=== PATIENT | male | born 1945 | race Caucasian/White ===

== ENCOUNTER 2019-06-29 12:56 | Inpatient (IN) | payer MEDICARE, BC ==
[~2019-06-29] VITALS: Ht 170.2 cm; Wt 93.4 kg
--- NOTE | 2019-06-29 13:00 | NUR ---
"MIDSTERNAL CHEST PAIN, PRESSURE LIKE X 1 HOUR COREMAKING MACHINE OPERATOR" PT AAOX4,-SOB, NAD NOTED, VSS, PENDING MD WEBBER
[2019-06-29 13:30] LABS: BASOPHILS # (AUTO) 0.1 /CMM (0.0-0.2); BASOPHILS % (AUTO) 1.3 % (0.0-2.0); EOSINOPHILS % (AUTO) 4.2 % (0.0-6.0); HEMATOCRIT 34 % (39-51); HEMOGLOBIN 10.9 g/dL (13.5-17.5); LYMPHOCYTES # (AUTO) 0.9 /CMM (0.8-4.8); LYMPHOCYTES % (AUTO) 13.1 % (20.0-44.0); MEAN CORPUSCULAR HGB CONC 32 g/dl (31.0-36.0); MEAN CORPUSCULAR VOLUME 88 fL (80-96); MONOCYTES # (AUTO) 0.7 /CMM (0.1-1.30); NEUTROPHILS # (AUTO) 4.8 /CMM (1.8-8.9); NEUTROPHILS % (AUTO) 71.4 % (43.0-81.0); PLATELET COUNT (AUTO) 213 /CMM (150-450); RED BLOOD CELL COUNT(AUTO) 3.88 MIL/uL (4.5-6.0); WHITE BLOOD COUNT (AUTO) 6.7 K/uL (4.3-11.0)
[2019-06-29] MEDS ORDERED: RANI-655 PO (13:32)
[2019-06-29] MEDS ORDERED: ATOR40TA PO (13:32)
[2019-06-29] MEDS ORDERED: VALS80TA2 PO (13:32)
[2019-06-29] MEDS ORDERED: TRIA80OI TP (13:32)
[2019-06-29] MEDS ORDERED: LEVO50TA8 PO (13:32)
[2019-06-29] MEDS ORDERED: ASPI-992 PO (13:32)
[2019-06-29] MEDS ORDERED: ALLO300T2 PO (13:32)
[2019-06-29] MEDS ORDERED: VENL75CA56 PO (13:32)
[2019-06-29] MEDS ORDERED: TERA5CAP4 PO (13:32)
[2019-06-29] MEDS ORDERED: ESOM40CA PO (13:32)
[2019-06-29] MEDS ORDERED: CETI-102 PO (13:32)
[2019-06-29] MEDS ORDERED: OMEG10006 PO (13:32)
[2019-06-29] MEDS ORDERED: MV-M1TAB38 PO (13:32)
[2019-06-29] MEDS ORDERED: CARV12.52 PO (13:32)
[2019-06-29] MEDS ORDERED: DONE10TA11 PO (13:32)
[2019-06-29] MEDS ORDERED: ARMO250T2 PO (13:32)
[2019-06-29] MEDS ORDERED: TIOT4MIS3 IH (13:32)
[2019-06-29] MEDS ORDERED: FURO-145 PO (13:32)
[2019-06-29] MEDS ORDERED: FINA5TAB11 PO (13:32)
[2019-06-29 13:41] LABS: CALCIUM, SERUM 9.2 mg/dL (8.5-10.1); CARBON DIOXIDE 27 mmol/L (21-32); CHLORIDE 106 mmol/L (98-107); CREATININE 1.1 mg/dL (0.6-1.3); GLUCOSE 125 mg/dL (74-106); POTASSIUM 3.8 mmol/L (3.5-5.1); SODIUM SERUM 141 mmol/L (136-145); UREA NITROGEN, BLOOD 31 mg/dL (7-18)
[2019-06-29 13:48] LABS: ALANINE AMINOTRANSFERASE 47 U/L (12-78); ALBUMIN 3.4 g/dL (3.4-5.0); ALKALINE PHOSPHATASE 73 U/L (46-116); ASPARTATE AMINOTRANSFERASE 50 U/L (15-37); BILIRUBIN,DIRECT 0.3 mg/dL (0.0-0.2); BILIRUBIN,TOTAL 0.6 mg/dL (0.2-1.0); TOTAL PROTEIN, SERUM 7.3 g/dL (6.4-8.2)
[2019-06-29] MEDS ORDERED: IOHEXOL-300 100 ML VIAL IV ONE (13:50)
[2019-06-29] MEDS ORDERED: IV NS 0.9% 250 ML IV ONE (13:50)
[2019-06-29] MEDS ORDERED: CT SWABBABLE VALVE TRANS SET 1 EA INFUS.SET MC ONE (13:50)
--- NOTE | 2019-06-29 15:05 | NUR ---
CALLED NURSING SUP FOR BED
[2019-06-29] MEDS ORDERED: ALPRAZOLAM 0.5 MG TABLET ONE (15:20)
[2019-06-29] MEDS ORDERED: ALPRAZOLAM 0.25 MG TABLET PO ONE ×2 (15:30)
--- NOTE | 2019-06-29 15:45 | NUR ---
ROOM ASSIGNED: 324-2
[2019-06-29] MEDS ORDERED: ACETAMINOPHEN 325 MG TABLET ONE (15:50)
--- NOTE | 2019-06-29 15:52 | NUR ---
TYLENOL 650MG GIVEN PER ERMD VERBAL ORDER.
--- NOTE | 2019-06-29 15:52 | NUR ---
Yanelis owens in ED - 06/29/19 at 1554 by ADELA TYLENOL 650MG PO GIVEN PER JEANETTE VERBAL ORDER.
--- NOTE | 2019-06-29 16:00 | NUR ---
RN ADMITTING NOTES ADMITTED 73 YEARS OLD, M, A/O X 4. ABLE TO MAKE NEEDS KNOWN. PATIENT ORIENTED TO UNIT, ROOM AND STAFF. ON RA, TOLERATING WELL. V/S TAKEN AND RECORDED. REFUSED PHYSICAL ASSESSMENT. PATIENT HAS IV ACCESS ON RAC #18, SL. PATENT AND INTACT. ON TELE MONITOR. SAFETY MEASURES INITIATED, BED PLACED IN LOW LOCKED POSITION WITH SIDE RAILS UP X2. CALL LIGHT PLACED WITHIN REACH. WILL CONTINUE TO MONITOR.
--- NOTE | 2019-06-29 16:12 | NUR ---
PT TRANSPORTED TO 3RD FLOOR; REPORT GIVEN TO JCARLOS LIMON FOR MARK
[2019-06-29 16:30] VITALS: BP 121/66
--- NOTE | 2019-06-29 18:29 | NUR ---
CEMENT SPRAYER HELPER CLOSING NOTES PATIENT IN BED RESTING COMFORTABLY IN MODERATE HIGH BACK REST. A/O X4. IV ACCESS ON RIGHT AC#18. PATENT AND INTACT. ON TELE MONITORING WITH CURRENT READING OF SR WITH HR OF 93. NO CARDIAC DISTRESS VOICED THROUGHOUT THE SHIFT. SAFETY MEASURES IN PLACE, BED IN LOW LOCKED POSITION WITH SIDE RAILS UP X2. CALL LIGHT WITHIN REACH. WILL ENDORSE TO PACKAGE PICK UP NURSE FOR MARK.
[2019-06-29] MEDS: TERAZOSIN HCL 5 MG CAPSULE PO SCH (19:30)
[2019-06-29] MEDS: CARVEDILOL 12.5 MG TABLET PO SCH (19:30)
--- NOTE | 2019-06-29 19:46 | NUR ---
LICENSED LOAN OFFICER OPENING NOTES RECEIVED PATIENT IN BED ASLEEP. EASILY AROUSABLE. ALERT AND ORIENTED X4, VERBALLY RESPONSIVE, ABLE TO MAKE NEEDS KNOWN. BREATHING EVEN AND UNLABORED. NO SOB NOTED. ON ROOM AIR. DENIES PAIN OR DISCOMFORT. DENIES CHEST PAIN. DENIES N/V. IV ON RIGHT AC INTACT AND PATENT. AFEBRILE. STILL REFUSES SKIN ASSESSMENT. ALL OTHER NEEDS ATTENDED TO. SAFETY MEASURES IN PLACE. CALL LIGHT WITHIN REACH. WILL CONTINUE TO MONITOR.
[2019-06-29 20:00] VITALS: BP 96/53
[2019-06-29] MEDS ORDERED: ALBUTEROL HALF STRENGTH 1.25 MG/3 ML VIAL.NEB NEB PRN (20:00)
[2019-06-29] MEDS ORDERED: ONDANSETRON HCL/PF 4 MG/2 ML VIAL IVP PRN (20:00)
[2019-06-29] MEDS ORDERED: MAG HYDROX/AL HYDROX/SIMETH 30 ML UDC PO PRN (20:00)
[2019-06-29] MEDS ORDERED: Z GUARD REMEDY 2 OZ OINT TP PRN (20:00)
[2019-06-29] MEDS ORDERED: HYDROCODONE/APAP 5/325MG 1 EACH TABLET PO PRN (20:00)
[2019-06-29] MEDS ORDERED: MAGNESIUM HYDROXIDE 30 ML UDC PO PRN (20:00)
[2019-06-29] MEDS ORDERED: ZOLPIDEM TARTRATE 5 MG TABLET PO PRN (20:00)
[2019-06-29 20:06] LABS: THYROID STIMULATING HORMONE 3.303 uIU/mL (0.358-3.74)
[2019-06-29] MEDS: FUROSEMIDE 20 MG TABLET PO SCH (21:03)
[2019-06-29] MEDS: ATORVASTATIN 40 MG TABLET PO SCH (21:03)
--- NOTE | 2019-06-29 21:04 | NUR ---
GEOTHERMAL OPERATIONS MANAGER NOTES MARK CRANE HERE IN UNIT. INFORMED OF PATIENT'S BP 96/53 HR 84 WELL THE BP MEDS SCHEDULED: COREG, HYTRIN, LASIX. ASKED IF OK TO HOLD ALL OF THEM DUE TO LOW BP. PER ROYCE, OK TO HOLD HYTRIN AND COREG, BUT GIVE LASIX. VERIFIED ORDER WITH READ BACK. ORDERS NOTED AND CARRIED OUT. WILL CONTINUE TO MONITOR.
--- NOTE | 2019-06-29 21:44 | NUR ---
DIRECTOR OF PHYSICIAN PRACTICES NOTES MOTOR COACH OPERATOR ROYCE MADE AWARE OF LACTIC ACID 2.7. PATIENT NOT ON FLUIDS OR ABX. BP 96/53, HR 84, TEMP 97.8. PER MOTOR COACH OPERATOR ROYCE, NO NEW ORDERS. WILL CONTINUE TO MONITOR.
[2019-06-29] MEDS ORDERED: ALPRAZOLAM 1 MG TABLET PO ONE (22:00)
[2019-06-29] MEDS ORDERED: IV NS 0.9% 1,000 ML IV PRN (23:30)
[2019-06-29] MEDS ORDERED: LEVOFLOXACIN 750 MG /D5W 150ML 150 ML IV ONE (23:47)
[2019-06-30] VITALS (41 sets, daily range): BP systolic 82–117; BP diastolic 43–75
--- NOTE | 2019-06-30 01:11 | NUR ---
MANUFACTURING CHIEF ENGINEER NOTES PATIENT NOTED TO HAVE SOB. RR 32, 95% ON 2LNC. NO WHEEZING. CALLED RT FOR PRN BREATHING TREATMENT. PATIENT STATED THAT HE FEELS AGITATED AND IS REQUESTING FOR XANAX.. PAGED MARK CRANE, AND INFORMED OF PATIENT'S SOB AND VITALS. ALSO INFORMED ROYCE THAT PATIENT WAS GIVEN XANAX 1MG PO AT AROUND 2100 BUT IT WAS ONLY A [address] LEMA. PER ROYCE, XANAX 1MG PO Q8H PRN. ORDER NOTED AND CARRIED OUT. WILL CONTINUE TO MONITOR. Addendum: 06/30/19 at 0250 by LATONIA BURTON RN PATIENT ALSO REQUESTED FOR TYLENOL FOR RIGHT HIP PAIN 01/02. DENIES ANY FALLS. TYLENOL GIVEN AND PATIENT STATED IT WAS EFFECTIVE. Addendum: 06/30/19 at 0321 by LATONIA BURTON RN ERROR: PATIENT ON 3LPM NC.
[2019-06-30] MEDS: ACETAMINOPHEN 325 MG TABLET PO PRN (01:24)
[2019-06-30] MEDS: ALPRAZOLAM 1 MG TABLET PO PRN (01:24)
--- NOTE | 2019-06-30 02:20 | NUR ---
RT NOTE Late Entry: RT called to place pt on bipap per DEMENTIA PROGRAM DIRECTOR Jose Armando Celesteq. Pt rec'd on Simple Mask @ 6LPM. Pt showed signs of respiratory distress. Pt placed on noted setting per DEMENTIA PROGRAM DIRECTOR Jose Armando Mares. Stat Abg to be taken. Alarms are set and audible. Vent plugged into red outlet. Ambu bag bedside. Will continue to monitor. Addendum: 06/30/19 at 0332 by SEAN ROCHA RT Amended: Links added.
[2019-06-30] MEDS ORDERED: FUROSEMIDE 40 MG/4 ML VIAL IV ONE (02:30)
[2019-06-30 02:31] LABS: ABG BASE EXCESS 0.7 mmol/L; ABG OXYGEN SATURATION 99.4 % (92.0-98.5); ABG PCO2 42.1 mmHg (35.0-45.0); ABG PH 7.401 (7.350-7.450); ABG PO2 381.9 mmHg (75.0-100.0); COHb 0.7 % (0.5-1.5); MetHb 0.5 % (0.0-1.5); O2Hb 98.2 % (94.0-97.0); SITE, ABG Right Radial; VENT MODE, BG bipap 15/5 100% RR 16
--- NOTE | 2019-06-30 02:50 | NUR ---
MOUTHPIECE MAKER NOTES 0107 - BREATHING TREATMENT GIVEN FOR SOB. RR 32 O2SAT 95% ON 3LPM NC. BP 111/67 HR 95. SR 90s on TELE MONITOR. 0124 - XANAX 1MG PO GIVEN. 0157 - PAGED RADIO ANNOUNCER ROYCE AGAIN FOR LABORED BREATHING. XANAX AND BREATHING TREATMENT INEFFECTIVE. RR 39. 90-92% O2SAT ON 3LPM NC, BP 121/59 HR 93 PLACED ON 6LPM SIMPLE MASK. O2SAT INCREASED TO 98-99%. PER ROYCE, INITIATE BIPAP AND WILL COME TO SEE PATIENT. 0210 - RADIO ANNOUNCER ROYCE HERE IN UNIT, SEEN AND EXAMINED PATIENT. PLACED ORDER FOR LASIX 40MG IV x1 NOW, STAT ABG, and Transfer to ICU. 0228 - RADIO ANNOUNCER ROYCE AWARE OF ABG RESULTS STILL WITH ORDER TO TRANSFER TO ICU. 0300 - PATIENT TRANSFERRED TO ICU. REPORT GIVEN TO BRAXTON MELGOZA.
--- NOTE | 2019-06-30 03:20 | NUR ---
BUSINESS INTELLIGENCE ANALYST - NOTES - PT TRANSFERRED FROM 3 FOR RESPIRATORY DISTRESS, PT COMPLAINING OF LABORED BREATHING AND PLACED ON RESCUE BIPAP. PT IS AWAKE ALERT AND ORIENTED X 3, PT PLACED ON BIPAP 15/5 RATE 16 40% FI02, PT WAS GIVEN 40 MG LASIX BEFORE COMING TO ICU, PT HAS A CONDOM CATHETER AND IS PUTTING OUT CLEAR YELLOW URINE. PT IS IN SR W BBB, BP WNL. PT HAS RIGHT AC 18G, NO IVF, WILL CONTINUE TO MONITOR
[2019-06-30] MEDS ORDERED: MORPHINE SULFATE INJ 2 MG/ML DISP.SYRIN IV PRN (03:30)
[2019-06-30 04:47] LABS: BASOPHILS % (AUTO) 0.2 % (0.0-2.0); EOSINOPHILS % (AUTO) 0.3 % (0.0-6.0); HEMATOCRIT 33 % (39-51); HEMOGLOBIN 10.9 g/dL (13.5-17.5); LYMPHOCYTES # (AUTO) 0.3 /CMM (0.8-4.8); LYMPHOCYTES % (AUTO) 3.3 % (20.0-44.0); MEAN CORPUSCULAR HGB CONC 33 g/dl (31.0-36.0); MEAN CORPUSCULAR VOLUME 87 fL (80-96); MONOCYTES # (AUTO) 0.6 /CMM (0.1-1.30); MONOCYTES % (AUTO) 6.2 % (2.0-12.0); PLATELET COUNT (AUTO) 171 /CMM (150-450); RED BLOOD CELL COUNT(AUTO) 3.81 MIL/uL (4.5-6.0); WHITE BLOOD COUNT (AUTO) 8.9 K/uL (4.3-11.0)
--- NOTE | 2019-06-30 04:50 | NUR ---
PT REFUSED BIPAP COMPLAINING THAT IT IS UNCOMFORTABLE, PT PLACED ON 2L NC, WILL CONTINUE TO MONITOR
[2019-06-30 05:01] LABS: CARBON DIOXIDE 28 mmol/L (21-32); CHLORIDE 104 mmol/L (98-107); CREATININE 1.1 mg/dL (0.6-1.3); GLUCOSE 121 mg/dL (74-106); MAGNESIUM 1.8 mg/dL (1.8-2.4); PHOSPHORUS 3.5 mg/dL (2.5-4.9); POTASSIUM 3.6 mmol/L (3.5-5.1); SODIUM SERUM 139 mmol/L (136-145); UREA NITROGEN, BLOOD 33 mg/dL (7-18)
--- NOTE | 2019-06-30 05:05 | NUR ---
PT DESATURATED TO 88%, NASAL CANNULA FLOW INCREASED TO 6 LPM
--- NOTE | 2019-06-30 07:30 | NUR ---
PATROL SUPERVISOR OPENING NOTES RECEIVED REPORT FRO PM NURSE. PATIENT IN BED ASLEEP. EASILY AROUSABLE. ALERT AND ORIENTED X4, VERBALLY RESPONSIVE, ABLE TO MAKE NEEDS KNOWN. BREATHING EVEN AND MILD LABORED. ON NASAL CANULA. DENIES PAIN OR DISCOMFORT. DENIES CHEST PAIN. IV ON RIGHT AC INTACT AND PATENT. AFEBRILE.SAFETY MEASURES IN PLACE. CALL LIGHT WITHIN REACH. SRX3.BED ALARM ON.WILL CONTINUE TO MONITOR.
[2019-06-30] MEDS: ASPIRIN 325 MG TABLET PO SCH (08:14)
[2019-06-30] MEDS: LEVOTHYROXINE SODIUM 50 MCG TABLET PO SCH (08:17)
[2019-06-30] MEDS: VALSARTAN 80 MG TABLET PO SCH (08:18)
[2019-06-30] MEDS: CARVEDILOL 12.5 MG TABLET PO SCH ×2 (08:18→16:44)
[2019-06-30] MEDS: ATORVASTATIN 40 MG TABLET PO SCH (08:18)
[2019-06-30] MEDS: FINASTERIDE (5 MG) 5 MG TABLET PO SCH (08:18)
[2019-06-30] MEDS: FUROSEMIDE 20 MG TABLET PO SCH ×2 (08:18→16:43)
[2019-06-30] MEDS: PANTOPRAZOLE 40 MG TABLET.DR PO SCH (08:31)
[2019-06-30] MEDS: DONEPEZIL 5 MG TABLET PO SCH (08:31)
[2019-06-30] MEDS: VENLAFAXINE XR 37.5 MG CAP.SR.24H PO SCH (08:31)
[2019-06-30] MEDS: ALLOPURINOL 100 MG TABLET PO SCH (08:31)
[2019-06-30] MEDS ORDERED: TIOTROPIUM BR INH SCH (09:00)
[2019-06-30] MEDS ORDERED: methylPREDNISolone SOD SUCC 125 MG/2ML VIAL IV ONE (09:00)
[2019-06-30] MEDS ORDERED: OLODATEROL HCL INH SCH (09:00)
[2019-06-30] MEDS: TERAZOSIN HCL 5 MG CAPSULE PO SCH ×2 (09:00→16:44)
[2019-06-30] MEDS: ALBUTEROL HALF STRENGTH 1.25 MG/3 ML VIAL.NEB NEB SCH ×5 (09:00→23:21)
[2019-06-30] MEDS: cetrizine 10 MG TABLET PO SCH (10:03)
[2019-06-30 10:07] LABS: *SPE A/G RATIO 1.1 (0.7-1.7); *SPE ALBUMIN 3.6 g/dL (2.9-4.4); *SPE ALPHA-1-GLOBULIN 0.2 g/dL (0.0-0.4); *SPE BETA GLOBULIN 0.9 g/dL (0.7-1.3); *SPE GLOBULIN, TOTAL 3.4 g/dL (2.2-3.9); *SPE M-SPIKE Not Observed g/dL (Not Observed); *SPEGAMMA GLOBULIN 1.3 g/dL (0.4-1.8)
[2019-06-30] MEDS: ENOXAPARIN SODIUM 40 MG/0.4 ML DISP.SYRIN SQ SCH (10:59)
--- NOTE | 2019-06-30 11:19 | NUR ---
GUEST SERVICES NOTE PALCED PATIENT ON BIPAP,LABORED BREATHING
[2019-06-30] MEDS: methylPREDNISolone SOD SUCC 40 MG/ML VIAL IV SCH ×2 (13:44→21:10)
--- NOTE | 2019-06-30 14:00 | NUR ---
HEAT SET OPERATOR NOTE SYSTEMS AUDITOR MADE AWARE ABOUT MED RECONCILIATION.HE DONT WANT TO CONTINUE MEDS THAT DID NOT CONTINUED FROM MED RECONCILE.PHARMACY MADE AWARE.SPOKE TO
--- NOTE | 2019-06-30 17:07 | NUR ---
RT END OF THE SHIFT REPORT, PT. REC @0700 AM 73 Y OLD MALE REMAIN ON 2 L/MIN N/C AWAKE AND RESPONSIVE. @1105 AM PT. START GETTING CONFUSED, AND SOB RN AND TEST ADMINISTRATOR AT THE BEDSIDE. PT. PLACED ON BIPAP WITH NOTED SETTINGS. EQUAL CHEST RISE NOTED B/S BILATERALLY RALES. BIPAP PLUGGED INTO RED OUT LET, AMBU BAG AT BEDSIDE. TX'S ALBUTEROL 1.25 MG STARTED INLINE PER MD ORDER. Q4H SEBASTIAN. WELL NO ADVERSE REACTION NOTED. @1300 PT. OFF BIPAP PLACED ON 2L/MIN N/C WILL CONTINUE TO MONITOR. @1558 HHN TX'S GIVEN WITH MASK AND NO ADVERSE REACTION NOTED. PT. STABLE AND REPORT WILL PASS TO PM SHIFT. Addendum: 06/30/19 at 1719 by PRIMO CARMONA RT Amended: Links added.
--- NOTE | 2019-06-30 19:36 | NUR ---
RECREATIONAL LEADER. INITIAL ASSESSMENT. RECEIVED THE PT REST ON THE BED. AWAKE, ALERT. FOLLOW COMMANDS, OXYGEN 5L VIA NASAL CANNULA. SAT 98%. NO ACUTE DISTRESS NOTED. EXECUTIVE ADMINISTRATIVE ASSISTANT SHOWING NSR. IV RT AC 18, SALINE LOCK. HOB ELEVATED. WILL CONTINUE TO MONITOR VITALS.
--- NOTE | 2019-06-30 19:41 | NUR ---
MOBILE MARKETING MANAGER CLOSING NOTES PATIENT IN BED SLEEPING. EASILY AROUSABLE. ALERT AND ORIENTED X4, VERBALLY RESPONSIVE, ABLE TO MAKE NEEDS KNOWN. BREATHING EVEN.NO SOB NOTED. ON NASAL CANULA 5L. DENIES PAIN OR DISCOMFORT. DENIES CHEST PAIN. IV ON RIGHT AC INTACT AND PATENT. AFEBRILE.SAFETY MEASURES IN PLACE. CALL LIGHT WITHIN REACH. SRX3.BED ALARM ON.ENDORSED TO PM NURSE FOR MARK.
[2019-06-30] MEDS: LEVOFLOXACIN 750 MG /D5W 150ML 750 MG in PREMIX 1 EA IV SCH ×3 (22:53)
[2019-07-01] VITALS (51 sets, daily range): BP systolic 91–135; BP diastolic 47–87
[2019-07-01] MEDS: ALBUTEROL HALF STRENGTH 1.25 MG/3 ML VIAL.NEB NEB SCH ×6 (03:19→23:42)
--- NOTE | 2019-07-01 03:37 | NUR ---
MASK CHANGED TO UNDER THE NOSE MASK. PT COMPLAINING PRESSURE ON THE BRIDGE OF HIS NOSE. U.T.N MASK SIZE C IS MORE COMFORTABLE.
--- NOTE | 2019-07-01 03:48 | NUR ---
agricultural equipment design engineer. am care, oral care, bed bath given. linen changed, remaining same c pap setting tolerated well. sat 98%, no acute distress noted. surveillance monitor showing nsr. iv rt ac saline lock condom cath in laced, urine draining. will continue to monitor. a febrile.
[2019-07-01 04:23] LABS: HEMATOCRIT 32 % (39-51); HEMOGLOBIN 10.5 g/dL (13.5-17.5); LYMPHOCYTES # (AUTO) 0.5 /CMM (0.8-4.8); LYMPHOCYTES % (AUTO) 5.2 % (20.0-44.0); MEAN CORPUSCULAR HGB CONC 33 g/dl (31.0-36.0); MEAN CORPUSCULAR VOLUME 88 fL (80-96); MONOCYTES # (AUTO) 0.2 /CMM (0.1-1.30); MONOCYTES % (AUTO) 2.5 % (2.0-12.0); NEUTROPHILS # (AUTO) 8.7 /CMM (1.8-8.9); NEUTROPHILS % (AUTO) 92.3 % (43.0-81.0); PLATELET COUNT (AUTO) 160 /CMM (150-450); RED BLOOD CELL COUNT(AUTO) 3.63 MIL/uL (4.5-6.0); WHITE BLOOD COUNT (AUTO) 9.4 K/uL (4.3-11.0)
[2019-07-01 04:32] LABS: CALCIUM, SERUM 9.6 mg/dL (8.5-10.1); CREATININE 1.1 mg/dL (0.6-1.3); POTASSIUM 3.9 mmol/L (3.5-5.1)
[2019-07-01] MEDS: methylPREDNISolone SOD SUCC 40 MG/ML VIAL IV SCH ×2 (04:37→10:51)
--- NOTE | 2019-07-01 05:54 | NUR ---
PT TAKEN OFF BIPAP AND PLACED ON 3L NC. RN LIVAN NOTIFIED.
--- NOTE | 2019-07-01 06:26 | NUR ---
PRIVATE BRANCH EXCHANGE INSTALLER, C PAP OFF. OXYGEN 3L VIA NASAL CANNULA.
--- NOTE | 2019-07-01 07:35 | NUR ---
TANK WASHER OPENING NOTES RECEIVED REPORT FROM PM NURSE.PATIENT IN BED .ALERT AND ORIENTED X4, VERBALLY RESPONSIVE, ABLE TO MAKE NEEDS KNOWN. ON TELE MONITOR SR.BREATHING EVEN.NO SOB NOTED. ON NASAL CANULA 3L.SATURATING 98%. DENIES PAIN OR DISCOMFORT. DENIES CHEST PAIN. IV ON RIGHT AC INTACT AND PATENT. AFEBRILE.SAFETY MEASURES IN PLACE. CALL LIGHT WITHIN REACH. SRX3.BED ALARM ON.WILL CONTINUE TO MONITOR.
[2019-07-01] MEDS: PANTOPRAZOLE 40 MG TABLET.DR PO SCH (07:38)
[2019-07-01] MEDS: LEVOTHYROXINE SODIUM 50 MCG TABLET PO SCH (07:38)
[2019-07-01 08:29] LABS: LYMPHOCYTES % (MANUAL) 4 % (16-48); MONOCYTES % (MANUAL) 1 % (0-11.0); NEUTROPHILS % (MANUAL) 95 (42-76)
[2019-07-01] MEDS: TERAZOSIN HCL 5 MG CAPSULE PO SCH ×2 (08:56→17:12)
[2019-07-01] MEDS: DONEPEZIL 5 MG TABLET PO SCH (08:56)
[2019-07-01] MEDS: ASPIRIN 325 MG TABLET PO SCH (08:56)
[2019-07-01] MEDS: ALLOPURINOL 100 MG TABLET PO SCH (08:57)
[2019-07-01] MEDS: CARVEDILOL 12.5 MG TABLET PO SCH ×2 (08:57→17:00)
[2019-07-01] MEDS: VENLAFAXINE XR 37.5 MG CAP.SR.24H PO SCH (08:57)
[2019-07-01] MEDS: FUROSEMIDE 20 MG TABLET PO SCH ×2 (08:57→17:12)
[2019-07-01] MEDS: FINASTERIDE (5 MG) 5 MG TABLET PO SCH (08:57)
[2019-07-01] MEDS: cetrizine 10 MG TABLET PO SCH (08:57)
[2019-07-01] MEDS: VALSARTAN 80 MG TABLET PO SCH (08:57)
[2019-07-01] MEDS: ATORVASTATIN 40 MG TABLET PO SCH (08:57)
[2019-07-01 09:04] LABS: ABG BASE EXCESS 0.7 mmol/L; ABG OXYGEN SATURATION 92.4 % (92.0-98.5); ABG PCO2 40.9 mmHg (35.0-45.0); ABG PO2 65.7 mmHg (75.0-100.0); AaDO2 35.1 mmHg; COHb 0.2 % (0.5-1.5); MetHb 0.8 % (0.0-1.5); O2Hb 91.5 % (94.0-97.0); SITE, ABG Right Radial; VENT MODE, BG ROOM AIR
--- NOTE | 2019-07-01 10:40 | NUR ---
CERTIFIED RETINAL ANGIOGRAPHER NOTE SEEN BY MARK SHAW,UPDATED ABOUT PATIENT CONDITION.GOT NEW ORDERS.OK TO DOWNGRADE TO TELE UNIT.
[2019-07-01] MEDS: ENOXAPARIN SODIUM 40 MG/0.4 ML DISP.SYRIN SQ SCH (10:48)
[2019-07-01] MEDS ORDERED: METOPROLOL TARTRATE INJ 5 MG/5 ML AMPUL ONE ×3 (15:10→15:55)
[2019-07-01] MEDS ORDERED: NITROGLYCERIN 0.4 MG/TAB BOTTLE ONE (15:10)
--- NOTE | 2019-07-01 15:10 | NUR ---
O AND M SUPERVISOR NOTE PATIENT PICKED UP FOR CTA IN STABLE CONDITION.
[2019-07-01] MEDS: METOPROLOL TARTRATE INJ 5 MG/5 ML AMPUL IVP PRN ×10 (15:13→15:58)
[2019-07-01] MEDS ORDERED: NITROGLYCERIN 0.4 MG/TAB BOTTLE SL ONE (15:30)
--- NOTE | 2019-07-01 16:45 | NUR ---
MD ALLERGY IMMUNOLOGY NOTE PATIENT OUT FOR CTA [id number] TO 1630.BACK TO THE UNIT.MILD SOB NOTED WITH SATURATION OF 95%.VITAL SIGNS STABLE.RT MADE AWARE.BREATHING TREATMENT GIVEN.WILL CONTINUE TO MONITOR.
--- NOTE | 2019-07-01 18:25 | NUR ---
SENIOR STAFF PSYCHOLOGISTCONTROL SYSTEMS DEVELOPER NOTE PATIENT TRANSFERRED TO TELE [id number] WITH ACLS PROTOCOL.NO SOB NO DISTRESS NOTED.ON O2 3L VIA NASAL CANULA.FRIEND AT BEDSIDE.TOOK ALL BELONGINGS.REPORT GIVEN TO NURSE MARTINS.IV LINES ARE INTACT AND PATENT.VITAL SIGNS ARE STABLE.
--- NOTE | 2019-07-01 18:56 | NUR ---
received from icu per lorri with cc of chest pain. fixed in bed and made comfortable. with froend at bedside
--- NOTE | 2019-07-01 19:40 | NUR ---
EVE/ACCOUNT ASSISTANT RECEIVED REPORT FROM DAY SHIFT NURSE. SEE FLOWSHEET FOR ASSESSMENT. THERE ARE NO SKIN ISSUES THAT PT HAS WHICH REQUIRED TO ADDRESSED. PT IS ALERT X 4.PT IS ON A CARDICA DIET. 3 LITERS N/C WITH SATURATION THAT ARE REASONABLE, 90'S. PT SELF TURNS AND REPOSITIONED HIMSELF FOR COMFORT AND CARE. WILL CONTINUE TO MONITOR THIS PT.
--- NOTE | 2019-07-01 21:00 | NUR ---
EVE/CERTIFIED GENETIC COUNSELOR PT REQUESTED XANAX PO TO HELP HIM SLEEP. THIS WAS GIVEN TO HIM. WILL CONTINUE TO MONITOR THIS PT.
[2019-07-01] MEDS: ALPRAZOLAM 1 MG TABLET PO PRN (21:45)
[2019-07-01] MEDS: ACETAMINOPHEN 325 MG TABLET PO PRN (21:51)
--- NOTE | 2019-07-01 21:59 | NUR ---
RT NOTE: PLACED PT ON CPAP ON NOTED SETTINGS AT THIS TIME. NOSE MASK C WAS USED AT THIS TIME. PT SAYS HE IS COMFORTABLE. WILL CONT TO MONITOR PT. Addendum: 07/02/19 at 0411 by NAT PRECIADO RT Amended: Links added.
--- NOTE | 2019-07-01 22:00 | NUR ---
EVE/METAL AND PLASTIC HEATER PT COMPLAINED ABOUT HEADACHE, GAVE TYLENOL PO FOR THIS WILL MONITOR THIS PT.
--- NOTE | 2019-07-01 23:00 | NUR ---
EVE/INSOLE REINFORCER PT WAS PLACED ON CPAP OVER NIGHT. WILL MONITOR THIS PT AND HIS SATURATION. CALL LIGHT WITHIN REACH.
[2019-07-02] VITALS: BP 125/84
[2019-07-02] MEDS: LEVOFLOXACIN 750 MG /D5W 150ML 750 MG in PREMIX 1 EA IV SCH (00:06)
--- NOTE | 2019-07-02 02:00 | NUR ---
EVE/INTERIOR PLANT CARETAKER PT APPEARS TO BE COMFORTABLE, NOM ACUTE DISTRESS SEEN. CALL LIGHT WITHIN REACH AT THIS TIME. WILL CONTINUE TO MONITOR THIS PT.
[2019-07-02] MEDS: ALBUTEROL HALF STRENGTH 1.25 MG/3 ML VIAL.NEB NEB SCH ×3 (03:32→10:55)
--- NOTE | 2019-07-02 03:50 | NUR ---
EVE/VIDEO SYSTEM REPAIRER PT TOOK OFF CPAP, PLACED 3 LITERS N/C ON PT, WILL MONITOR THIS PT'S SATURATION. RT AT BEDSIDE AWARE OF THIS
[2019-07-02 04:00] VITALS: BP 106/62
--- NOTE | 2019-07-02 05:00 | NUR ---
EVE/DEBURRER STRIP AM LABS WERE DRAWN
--- NOTE | 2019-07-02 07:25 | NUR ---
SAFE DEPOSIT BOX RENTAL CLERK OPENING NOTES RECEIVED REPORT FROM PM NURSE.PATIENT IN BED .ALERT AND ORIENTED X4, VERBALLY RESPONSIVE, ABLE TO MAKE NEEDS KNOWN. ON TELE MONITOR SR HR 67.BREATHING EVEN.NO SOB NOTED. ON NASAL CANULA 3L. DENIES PAIN OR DISCOMFORT. DENIES CHEST PAIN. IV ON RIGHT AC AND L HAND INTACT AND PATENT. AFEBRILE.SAFETY MEASURES IN PLACE. CALL LIGHT WITHIN REACH. SRX3.BED ALARM ON.WILL CONTINUE TO MONITOR.
[2019-07-02 07:29] LABS: BASOPHILS % (AUTO) 0.1 % (0.0-2.0); EOSINOPHILS % (AUTO) 0.1 % (0.0-6.0); HEMATOCRIT 33 % (39-51); HEMOGLOBIN 10.7 g/dL (13.5-17.5); LYMPHOCYTES # (AUTO) 0.6 /CMM (0.8-4.8); MEAN CORPUSCULAR HGB CONC 32 g/dl (31.0-36.0); MEAN CORPUSCULAR VOLUME 87 fL (80-96); MONOCYTES % (AUTO) 8.6 % (2.0-12.0); NEUTROPHILS % (AUTO) 86.2 % (43.0-81.0); PLATELET COUNT (AUTO) 166 /CMM (150-450); RED BLOOD CELL COUNT(AUTO) 3.84 MIL/uL (4.5-6.0); WHITE BLOOD COUNT (AUTO) 11.6 K/uL (4.3-11.0)
[2019-07-02 07:37] LABS: CALCIUM, SERUM 9.2 mg/dL (8.5-10.1); POTASSIUM 4.1 mmol/L (3.5-5.1)
[2019-07-02] MEDS: LEVOTHYROXINE SODIUM 50 MCG TABLET PO SCH (07:48)
[2019-07-02] MEDS: PANTOPRAZOLE 40 MG TABLET.DR PO SCH (07:48)
[2019-07-02 08:00] VITALS: BP 112/72
[2019-07-02] MEDS: TERAZOSIN HCL 5 MG CAPSULE PO SCH (08:24)
[2019-07-02] MEDS: ASPIRIN 325 MG TABLET PO SCH (08:24)
[2019-07-02] MEDS: DONEPEZIL 5 MG TABLET PO SCH (08:24)
[2019-07-02] MEDS: cetrizine 10 MG TABLET PO SCH (08:24)
[2019-07-02] MEDS: ALLOPURINOL 100 MG TABLET PO SCH (08:24)
[2019-07-02] MEDS: FINASTERIDE (5 MG) 5 MG TABLET PO SCH (08:24)
[2019-07-02] MEDS: ATORVASTATIN 40 MG TABLET PO SCH (08:25)
[2019-07-02 08:26] VITALS: BP 112/72
[2019-07-02] MEDS: methylPREDNISolone SOD SUCC 40 MG/ML VIAL IV SCH (08:26)
[2019-07-02] MEDS: CARVEDILOL 12.5 MG TABLET PO SCH (08:26)
[2019-07-02] MEDS: VALSARTAN 80 MG TABLET PO SCH (08:26)
[2019-07-02] MEDS: FUROSEMIDE 20 MG TABLET PO SCH (08:28)
[2019-07-02] MEDS: VENLAFAXINE XR 37.5 MG CAP.SR.24H PO SCH (09:41)
[2019-07-02] MEDS: ENOXAPARIN SODIUM 40 MG/0.4 ML DISP.SYRIN SQ SCH (09:42)
--- NOTE | 2019-07-02 12:00 | NUR ---
J2EE ARCHITECT NOTE SEEN BY ,UPDATED ABOUT PATIENT CONDITION WITH LABS.ON RA SATURATING 94-95%.GOT NEW ORDER FOR DISCHARGE.MED RECONCILIATION GIVEN WITH PRESCRIPTIONS.TO CONTINUE ANTIBIOTICS FOR X7 DAYS.PATIENT MADE AWARE.
--- NOTE | 2019-07-02 13:20 | NUR ---
MS ACCOUNT INSTALLATION SPECIALIST NOTE PATIENT DISCHARGED TO HOME WITH FRIEND IN STABLE CONDITION.NO SOB NO DISTRESS NOTED.ON RA.TOOK ALL BELONGINGS.IV REMOVED.PRESSURE DRESSING APPLIED.EXIT CARE GIVEN WITH DISCHARGE INSTRUCTIONS.PATIENT VERBALIZED UNDERSTANDING.INSTRUCTED TO FOLLOW UP WITH BOX COVERER HAND,BOILER FIREMAN AND PRIMARY DOCTOR IN 1WEEK.NEBULIZER WILL DELIVER TO PATIENT HOME PER PET NUTRITION SPECIALIST.TO FOLLOW UP WITH CT SCAN FOR PULMONARY NODULES.STUDENT NURSE HELPED OUT PATIENT TO WHEEL OUT.
== END 2019-07-02 13:20 | disposition home or self-care (01) | DRG 291 ==
LOC: ER 12:58 → TELE 15:46 → ICU 06-30 03:06 → TELE1 07-01 18:41
PROVIDERS: ADMIT Nurse Practitioner Acute Care
PROC: 5A09357 Assistance with Respiratory Ventilation, Less than 24 Consecutive Hours, Continuous Positive Airway Pressure (ICD-10-PCS; principal; 2019-06-29)
DX: I11.0 Hypertensive heart disease with heart failure (principal); J15.9 Unspecified bacterial pneumonia; E87.2 Acidosis; Q89.09 Congenital malformations of spleen; I50.33 Acute on chronic diastolic (congestive) heart failure; I25.10 Atherosclerotic heart disease of native coronary artery without angina pectoris; I50.9 Heart failure, unspecified; Z85.71 Personal history of Hodgkin lymphoma; K44.9 Diaphragmatic hernia without obstruction or gangrene; G47.33 Obstructive sleep apnea (adult) (pediatric); D63.8 Anemia in other chronic diseases classified elsewhere; E03.9 Hypothyroidism, unspecified; E78.5 Hyperlipidemia, unspecified; K21.9 Gastro-esophageal reflux disease without esophagitis; Z79.82 Long term (current) use of aspirin; Z87.891 Personal history of nicotine dependence; Z87.442 Personal history of urinary calculi; Z95.2 Presence of prosthetic heart valve; Z95.1 Presence of aortocoronary bypass graft; Z79.899 Other long term (current) drug therapy; M85.80 Other specified disorders of bone density and structure, unspecified site; J44.9 Chronic obstructive pulmonary disease, unspecified
CPT/HCPCS: 36415; 36600; 71045-TC; 71260-TC; 75574; 80048-TC; 80061-TC; 80076-TC; 82728-TC; 82803-TC; 83540-TC; 83605-TC; 83735-TC; 83880; 84100-TC; 84155; 84165; 84439-TC; 84443-TC; 84484-TC; 85025-TC; 87081-TC; 93307-TC; 94660; 94760-TC; 94799-TC; 97110-TC; 97116-TC; 97530-TC; 99082-TC; A4216; A4349; G0378; J1650; J1940; J1956; J2920; J2930; J3490; J7030; J7050; Q9967

== ENCOUNTER 2020-02-06 12:03 | Emergency (ER) | payer MEDICARE, BC ==
[~2020-02-06] VITALS: Ht 170.2 cm; Wt 81.6 kg
[~2020-02-06 12:03] MED LIST: ALLO300T2 PO; ARMO250T2 PO; ASPI-992 PO; ATOR40TA PO; CARV12.52 PO; CETI-110 PO; DONE10TA11 PO; ESOM40CA PO; FINA5TAB11 PO; FURO-145 PO; LEVO50TA8 PO; MV-M1TAB38 PO; OMEG10006 PO; RANI-655 PO; TERA5CAP4 PO; TIOT4MIS3 IH; TRIA80OI TP; VALS80TA2 PO; VENL75CA56 PO
--- NOTE | 2020-02-06 12:05 | NUR ---
BIB FRIEND C/O R KNEE PAIN S/P TRIP AND FALL. -KO, TO ER BED 10, HOOKED TO MONITOR, WARM BLANKET PROVIDED, PATIENT AAO x 3, BREATHING EVEN AND UNLABORED. DR GALINDO AT BEDSIDE.
--- NOTE | 2020-02-06 12:23 | NUR ---
AT BEDSIDE FOR EVAL.
--- NOTE | 2020-02-06 12:27 | NUR ---
Yanelis owens in [facility] - 02/06/20 at [address] MATEO RODRIGUEZ BEDSIDE
--- NOTE | 2020-02-06 13:48 | NUR ---
Patient discharged to home in stable condition. Written and verbal after care instructions given. Patient verbalizes understanding of instruction.
[2020-02-06 13:50] VITALS: BP 109/56
== END 2020-02-06 13:50 | disposition home or self-care (01) ==
LOC: ER 12:07
DX: S80.01XA Contusion of right knee, initial encounter (principal); I10 Essential (primary) hypertension; E78.00 Pure hypercholesterolemia, unspecified; Z95.818 Presence of other cardiac implants and grafts; Z96.651 Presence of right artificial knee joint; Z98.890 Other specified postprocedural states; Z60.2 Problems related to living alone; Z79.899 Other long term (current) drug therapy; Z79.82 Long term (current) use of aspirin; W01.0XXA Fall on same level from slipping, tripping and stumbling without subsequent striking against object, initial encounter; Y93.01 Activity, walking, marching and hiking; Y92.89 Other specified places as the place of occurrence of the external cause; Y99.8 Other external cause status
CPT/HCPCS: 73564-TC

== ENCOUNTER 2020-03-08 09:42 | Inpatient (IN) | payer MEDICARE, BC ==
[~2020-03-08] VITALS: Ht 170.2 cm; Wt 83.5 kg
[~2020-03-08 09:42] MED LIST changes: -CETI-110 PO; +CETI-90 PO
[2020-03-08] MEDS ORDERED: ASPIRIN 325 MG TABLET PO ONE (10:00)
[2020-03-08 10:08] LABS: BASOPHILS % (AUTO) 0.6 % (0.0-2.0); EOSINOPHILS % (AUTO) 4.1 % (0.0-6.0); HEMATOCRIT 36 % (39-51); HEMOGLOBIN 11.5 g/dL (13.5-17.5); LYMPHOCYTES # (AUTO) 0.9 /CMM (0.8-4.8); LYMPHOCYTES % (AUTO) 13.6 % (20.0-44.0); MEAN CORPUSCULAR HGB CONC 32 g/dl (31.0-36.0); MEAN CORPUSCULAR VOLUME 87 fL (80-96); MONOCYTES # (AUTO) 0.8 /CMM (0.1-1.30); MONOCYTES % (AUTO) 12.9 % (2.0-12.0); NEUTROPHILS # (AUTO) 4.5 /CMM (1.8-8.9); NEUTROPHILS % (AUTO) 68.8 % (43.0-81.0); PLATELET COUNT (AUTO) 251 /CMM (150-450); RED BLOOD CELL COUNT(AUTO) 4.08 MIL/uL (4.5-6.0); WHITE BLOOD COUNT (AUTO) 6.5 K/uL (4.3-11.0)
[2020-03-08] MEDS ORDERED: ALPR1TAB7 MT (10:14)
[2020-03-08] MEDS ORDERED: HYDR-3972 MT (10:14)
[2020-03-08] MEDS ORDERED: APIX5TAB MT (10:14)
[2020-03-08 10:17] LABS: CALCIUM, SERUM 9.7 mg/dL (8.5-10.1); CREATININE 1.2 mg/dL (0.6-1.3); POTASSIUM 3.3 mmol/L (3.5-5.1)
--- NOTE | 2020-03-08 10:17 | NUR ---
EIAMS750 FROM HOME PER FAMILY PT R SIDED FACIAL DROOP, SLURRED SPEECH SINCE LASTNIGHT PER EMS LKW [address] ALEJO EXAMINED PT. NO SLURRED SPEECH NOTED, NO FACIAL DROOP, TONGUE MIDLINE, NO ARMS/LEGS DRIFTING, EQUAL CRYOGENICS ENGINEER. PLACED ON AGENTS' RECORDS CLERK, SB. WILL CONT TO MONITOR.
[2020-03-08 10:23] LABS: ALBUMIN 3.4 g/dL (3.4-5.0); BILIRUBIN,DIRECT 0.2 mg/dL (0.0-0.2); BILIRUBIN,TOTAL 0.6 mg/dL (0.2-1.0); TOTAL PROTEIN, SERUM 7.3 g/dL (6.4-8.2)
[2020-03-08] MEDS ORDERED: ALBUTEROL SULFATE INH 18 GM HFA.AER.AD IH PRN (10:30)
[2020-03-08] MEDS ORDERED: ASPIRIN 325 MG TABLET ONE (10:32)
--- NOTE | 2020-03-08 11:10 | NUR ---
ASSUMED CARE OF PT. PT APPEARS TO BE RESTING COMFORTABLY WITH NO S/S OF PAIN OR DISTRESS. PT IS ON THE MONITOR AND CONTINUOUS POX. RESP ARE EVEN AND UNLABORED. PT STATED: "I WANT TO GO HOME". PT WAS TOLD THAT HE WOULD BE STAYING IN THE HOSPITAL.
--- NOTE | 2020-03-08 11:58 | NUR ---
DR SIU IS AT THE BEDSIDE SPEAKING TO THE PT.
[2020-03-08] MEDS ORDERED: SIMV-49 PO (12:41)
[2020-03-08] MEDS ORDERED: OLME20TA13 PO (12:41)
[2020-03-08] MEDS ORDERED: FURO-144 PO (12:41)
[2020-03-08] MEDS ORDERED: POTA10CA43 PO (12:41)
--- NOTE | 2020-03-08 13:05 | NUR ---
PT APPEARS TO BE RESTING COMFORTABLY. PT IS ON THE MONITOR AND POX. RESP ARE EVEN AND UNLABORED.
--- NOTE | 2020-03-08 13:44 | NUR ---
PT IS GOING TO 309-2
--- NOTE | 2020-03-08 13:44 | NUR ---
CALLING REPORT TO MARKETING ANALYTICS SPECIALIST.
[2020-03-08 14:30] VITALS: BP 121/61
--- NOTE | 2020-03-08 15:00 | NUR ---
Tele/RN - Admission Received patient from ER, alert and oriented x 3, speech is clear, full strength and sensation all 4 extremities, normal coordination, denies pain, on oxygen at 2lpm via NC, tele shows SB. Admitted for TIA under the care of Dr. Sierra. Patient passed swallow test, NIHSS is 0 on assessment, stroke handout provided. Patient oriented to room, all belongings accounted for. Saline lock on the left and right hand are both patent, intact, flushing well. Skin assessment done, no skin breakdown, except for right scapula surgical scar post lung surgery, refused photo to be taken. Fall and aspiration precautions initiated. Discussed plan of care with patient and in agreement. Admission orders noted and carried out.
[2020-03-08 16:00] VITALS: BP 121/61
[2020-03-08] MEDS ORDERED: ENOXAPARIN SODIUM 40 MG/0.4 ML DISP.SYRIN SQ SCH (17:00)
[2020-03-08] MEDS: CARVEDILOL 12.5 MG TABLET PO SCH (17:00)
[2020-03-08] MEDS: TERAZOSIN HCL 5 MG CAPSULE PO SCH (17:36)
[2020-03-08] MEDS: FUROSEMIDE 40 MG TABLET PO SCH (17:36)
[2020-03-08] MEDS: POTASSIUM CHLORIDE 10 MEQ TABLET.SA PO SCH (18:35)
--- NOTE | 2020-03-08 19:55 | NUR ---
MS RN OPENING NOTES PATIENT RECEIVED RESTING IN BED A/O X 3. ON 2L OF O2 WITH BREATHING EVEN AND UNLABORED, NO SOB NOTED. NO SIGN FO ACUTE DISTRESS. NO COMPLAINTS OF PAIN OR DISCOMFORT TELE MONITOR READING SR. IV LOCATED ON R AND L HAND #18 SL. SAFETY PRECAUTIONS IN PLACE WITH BED IN LOWEST POSITION, CALL LIGHT WITHIN REACH, BREAKS ON, SIDE RAILS UP. WILL CONTINUE TO MONITOR THROUGHOUT THE NIGHT.
[2020-03-08 20:00] VITALS: BP 121/62
[2020-03-08] MEDS: SIMVASTATIN 20 MG TABLET PO SCH (21:05)
[2020-03-08] MEDS: ALPRAZOLAM 1 MG TABLET PO PRN (21:20)
[2020-03-09] VITALS (31 sets, daily range): BP systolic 69–141; BP diastolic 29–70
--- NOTE | 2020-03-09 03:28 | NUR ---
MS RN NOTES PATIENT COMPLAINING OF BACK PAIN 05/05 AND HAVING TROUBLE MOVING, PATIENT S/O OF FALL PRIOR TO ADMISSION. MD WALKER NOTIFIED AND ORDERED CT OF CERVICAL AND THORACIC SPINE W/O CONTRAST AND 2MG OF MORPHINE Q2H PRN. ORDERS CARRIED OUT.
[2020-03-09] MEDS ORDERED: MORPHINE SULFATE INJ 2 MG/ML DISP.SYRIN IV PRN (03:30)
--- NOTE | 2020-03-09 06:33 | NUR ---
MS RN CLOSING NOTES PATIENT RESTING IN BED A/O X 3. ON 2L OF O2 WITH BREATHING EVEN AND UNLABORED, NO SOB NOTED. NO SIGN OF ACUTE DISTRESS. NO COMPLAINTS OF PAIN OR DISCOMFORT TELE MONITOR READING SR. IV LOCATED ON R AND L HAND #18 SL. SAFETY PRECAUTIONS IN PLACE WITH BED IN LOWEST POSITION, CALL LIGHT WITHIN REACH, BREAKS ON, SIDE RAILS UP. ALL NEEDS ATTENDED TO THROUGHOUT THE NIGHT. WILL ENDORSE TO ONCOMING SHIFT ABOUT MARK.
[2020-03-09 07:01] LABS: BASOPHILS % (AUTO) 0.7 % (0.0-2.0); EOSINOPHILS % (AUTO) 5.1 % (0.0-6.0); HEMATOCRIT 34 % (39-51); HEMOGLOBIN 10.5 g/dL (13.5-17.5); LYMPHOCYTES # (AUTO) 0.9 /CMM (0.8-4.8); LYMPHOCYTES % (AUTO) 13.8 % (20.0-44.0); MEAN CORPUSCULAR HGB CONC 31 g/dl (31.0-36.0); MEAN CORPUSCULAR VOLUME 87 fL (80-96); MONOCYTES # (AUTO) 0.9 /CMM (0.1-1.30); MONOCYTES % (AUTO) 13.3 % (2.0-12.0); NEUTROPHILS # (AUTO) 4.6 /CMM (1.8-8.9); NEUTROPHILS % (AUTO) 67.1 % (43.0-81.0); PLATELET COUNT (AUTO) 237 /CMM (150-450); RED BLOOD CELL COUNT(AUTO) 3.87 MIL/uL (4.5-6.0); WHITE BLOOD COUNT (AUTO) 6.8 K/uL (4.3-11.0)
--- NOTE | 2020-03-09 07:32 | NUR ---
CASH SALES AUDIT CLERK OPENING NOTES RECEIVED PATIENT IN BED, ASLEEP. PATIENT ON OXYGEN THERAPY 2 LPM VIA NASAL CANULA; BREATHING IS EVEN AND UNLABORED AT THIS TIME. TELE MONITOR WITH A READING OF SR. NO SIGNS OF PAIN SUCH MOANING, FACIAL GRIMACING OR GUARDING. R AND L IV ACCESS G # 18 PRESENT AND INTACT. SAFETY PRECAUTIONS IN PLACE; BED IN LOW POSITION AND LOCKED, RAILS UP X2, CALL LIGHT WITHN REACH. WILL CONTINUE TO MONITOR PATIENT.
[2020-03-09 07:36] LABS: THYROID STIMULATING HORMONE 1.901 uIU/mL (0.358-3.74)
[2020-03-09 07:47] LABS: CALCIUM, SERUM 9.5 mg/dL (8.5-10.1); CREATININE 0.9 mg/dL (0.6-1.3); POTASSIUM 3.2 mmol/L (3.5-5.1)
[2020-03-09 08:09] LABS: FREE PSA < 0.06 ng/mL (0.00-45)
[2020-03-09 08:12] LABS: PROSTATE SPECIFIC ANTIGEN SCR < 0.13 ng/mL (0.00-4.00)
[2020-03-09] MEDS ORDERED: ASPIRIN 81 MG TAB.CHEW PO SCH (09:00)
[2020-03-09] MEDS ORDERED: APIXABAN 5 MG TABLET PO SCH (09:00)
[2020-03-09] MEDS: DONEPEZIL 5 MG TABLET PO SCH (09:37)
[2020-03-09] MEDS: LOSARTAN POTASSIUM 50 MG TABLET PO SCH (09:39)
[2020-03-09] MEDS: ALLOPURINOL 100 MG TABLET PO SCH (09:39)
[2020-03-09] MEDS: PANTOPRAZOLE 40 MG TABLET.DR PO SCH (09:40)
[2020-03-09] MEDS: VENLAFAXINE XR 37.5 MG CAP.SR.24H PO SCH (09:40)
[2020-03-09] MEDS: FINASTERIDE (5 MG) 5 MG TABLET PO SCH (09:40)
[2020-03-09] MEDS: FUROSEMIDE 40 MG TABLET PO SCH ×2 (09:40→17:00)
[2020-03-09] MEDS: LEVOTHYROXINE SODIUM 50 MCG TABLET PO SCH (09:40)
[2020-03-09] MEDS: POTASSIUM CHLORIDE 10 MEQ TABLET.SA PO SCH ×2 (09:40→17:00)
[2020-03-09] MEDS: TERAZOSIN HCL 5 MG CAPSULE PO SCH ×2 (09:42→17:00)
[2020-03-09] MEDS: CARVEDILOL 12.5 MG TABLET PO SCH ×2 (09:42→17:00)
[2020-03-09] MEDS ORDERED: IOHEXOL-300 100 ML VIAL IV ONE ×2 (09:43→09:57)
[2020-03-09] MEDS ORDERED: IV NS 0.9% 250 ML IV ONE ×2 (09:43→09:58)
[2020-03-09] MEDS ORDERED: CT SWABBABLE VALVE TRANS SET 1 EA INFUS.SET MC ONE ×2 (09:44→09:58)
--- NOTE | 2020-03-09 10:55 | NUR ---
DIGITAL TECH NOTES PATIENT ON 3 LPM, COMPLAINING OF SOB; INCREASED O2 TO 4 L SATURATING 95% DURING PT AND NOTIFIED MD. MD ORDER TO KEEP HIM ON 4L AND WILL SEE PATIENT SOON.
--- NOTE | 2020-03-09 11:50 | NUR ---
SW CONSULT: Lean Manufacturing Coordinator performed Post Stroke Depression (MPHQ-9) assessment at bedside with the pt. Pt scored a high score of 17, indicating "moderately severe," per the rating category. SW engaged the pt in conversation regarding his emotional status. Pt reported he feels "down" a lot of time, and sometimes feels as if "he has no reason to live." SW assessed the pt for suicidal and homicidal ideation; pt denied. SW provided active listening, expressed empathy to the pt, and provided supportive counseling. SW asked pt if he receives any mental health treatment at this time. Pt reported he saw a psychiatrist "about 10 years ago." SW endorsed aforementioned information to Gretchen STARKS. Per Gretchen, a psych consult will be ordered to follow up on the pt's score. ANISA also consulted with RAUDEL Godinez on the pt's potential discharge plan as the pt reported he lives alone. ANISA inquired about any support system in the area and resources that may be available in the home. Pt politely declined and stated, "I can take care of myself." Per Gretchen, the pt is not medically cleared to discharge at this time and may benefit from placement upon discharge. ANISA will endorse to ANISA on shift tomorrow, 03/10. Airborne Weapons Technical Manager available for support as needed to formulate and execute a safe discharge plan.
--- NOTE | 2020-03-09 12:35 | NUR ---
MANUFACTURING LABORER NOTES 1200 NIHSS DONE WITH A SCORE OF 2. ATTENDING PHYSICIAN NOTIFIED.
--- NOTE | 2020-03-09 16:21 | NUR ---
SPIRAL WEAVERSPAR MACHINE OPERATOR NOTES PATIENT CONDITION GOT WORSE; VS :BP 85/40 HR 53 O2 97% ON 4 LPM VIA NASAL CANULA, A/O X2; SPEECH MORE SLURRED. NOTIFIED MD. GOT AN ORDER FR TRANSFER. PATIENT TRANSFERRED TO ICU AND REPORT GIVEN.
--- NOTE | 2020-03-09 17:00 | NUR ---
RESTAURANT MAINTENANCE TECHNICIAN PT RECEIVED FROM 3RD FLOOR VIA [place] WITH MONITOR. REPORT RECEIVED FROM 3W RN. PT SENT TO ICU FOR WORSENING LOC. PT AWAKE, WITH SLIGHTLY SLURRED SPEECH AND FOLLOWING COMMANDS. ORIENTED TO NAME ONLY. ATRIAL FIB PER MONITOR, BRADYCARDIC 40'S. HYPOTENSIVE. WILL HOLD PO MEDS DUE TO WORSENING ALOC AND HYPOTENSION. CONTACTED DR FERRELL FOR ORDERS.
--- NOTE | 2020-03-09 17:16 | NUR ---
POTABLE WATER TREATMENT OPERATOR UNABLE TO COMPLETE NM BONE SCAN DUE TO HYPOTENSION AND BRADYCARDIA.
[2020-03-09] MEDS ORDERED: NOREPINEPHRINE 8 MG in IV NS 0.9% 242 ML IV PRN (17:30)
--- NOTE | 2020-03-09 18:00 | NUR ---
AUTOMATION TENDER RECEIVED ORDER FOR LEVOPHED FROM DR FERRELL FOR HYPOTENSION. SPOKE WITH DR LEMA BY PHONE REGARDING PT'S BRADYCARDIA AND HYPOTENSION. ORDER TO D/C COREG RECEIVED. BP CHECKED AGAINST MANUAL CUFF. SIMILAR RESULT NIBP.
[2020-03-09] MEDS: SIMVASTATIN 20 MG TABLET PO SCH (21:43)
[2020-03-09] MEDS: ALPRAZOLAM 1 MG TABLET PO PRN (21:43)
[2020-03-10] VITALS (96 sets, daily range): BP systolic 84–141; BP diastolic 29–78
[2020-03-10 04:47] LABS: BASOPHILS % (AUTO) 0.4 % (0.0-2.0); EOSINOPHILS % (AUTO) 1.9 % (0.0-6.0); HEMATOCRIT 33 % (39-51); HEMOGLOBIN 10.3 g/dL (13.5-17.5); LYMPHOCYTES # (AUTO) 0.9 /CMM (0.8-4.8); LYMPHOCYTES % (AUTO) 13.5 % (20.0-44.0); MEAN CORPUSCULAR HGB CONC 31 g/dl (31.0-36.0); MEAN CORPUSCULAR VOLUME 88 fL (80-96); MONOCYTES # (AUTO) 1.1 /CMM (0.1-1.30); MONOCYTES % (AUTO) 17.1 % (2.0-12.0); NEUTROPHILS # (AUTO) 4.3 /CMM (1.8-8.9); NEUTROPHILS % (AUTO) 67.1 % (43.0-81.0); PLATELET COUNT (AUTO) 226 /CMM (150-450); RED BLOOD CELL COUNT(AUTO) 3.71 MIL/uL (4.5-6.0); WHITE BLOOD COUNT (AUTO) 6.4 K/uL (4.3-11.0)
[2020-03-10 05:30] LABS: CALCIUM, SERUM 9.1 mg/dL (8.5-10.1); CREATININE 1.1 mg/dL (0.6-1.3); MAGNESIUM 1.9 mg/dL (1.8-2.4); PHOSPHORUS 3.7 mg/dL (2.5-4.9); POTASSIUM 3.4 mmol/L (3.5-5.1)
[2020-03-10 05:50] LABS: LYMPHOCYTES % (MANUAL) 9 % (16-48); MONOCYTES % (MANUAL) 10 % (0-11.0); NEUTROPHILS % (MANUAL) 81 (42-76)
--- NOTE | 2020-03-10 07:15 | NUR ---
ICU/PREFORMING MACHINE OPERATOR REPORT TO FABIANA LIMON FOR CONT. OF CARE. ENDORSED MRI ABD WWO CONTRAST.
[2020-03-10 07:30] LABS: IMMUNOGLOBULIN A, SERUM 77 mg/dL (61-437); IMMUNOGLOBULIN G, SERUM 1067 mg/dL (603-1613); IMMUNOGLOBULIN M, SERUM 102 mg/dL (15-143)
[2020-03-10] MEDS: LOSARTAN POTASSIUM 50 MG TABLET PO SCH (08:30)
--- NOTE | 2020-03-10 08:31 | NUR ---
JI HELD D/T PT'S LOW BP AND ON LEVOPHED GTT.
[2020-03-10] MEDS: FINASTERIDE (5 MG) 5 MG TABLET PO SCH (09:02)
[2020-03-10] MEDS: LEVOTHYROXINE SODIUM 50 MCG TABLET PO SCH (09:02)
[2020-03-10] MEDS: PANTOPRAZOLE 40 MG TABLET.DR PO SCH (09:02)
[2020-03-10] MEDS: VENLAFAXINE XR 37.5 MG CAP.SR.24H PO SCH (09:02)
[2020-03-10] MEDS: DONEPEZIL 5 MG TABLET PO SCH (09:02)
[2020-03-10] MEDS: FUROSEMIDE 40 MG TABLET PO SCH (09:03)
[2020-03-10] MEDS: TERAZOSIN HCL 5 MG CAPSULE PO SCH ×2 (09:03→18:44)
[2020-03-10] MEDS: POTASSIUM CHLORIDE 10 MEQ TABLET.SA PO SCH ×2 (09:03→18:43)
--- NOTE | 2020-03-10 09:50 | NUR ---
PER INDUSTRIAL PARAMEDIC, MRI MACHINE IS WAITING ON A PART THAT WILL ARRIVE TOMORROW. MRI QUESTIONNAIRE FILLED OUT AND SIGNED AND ON CHART. MRI POSTPONED TILL MACHINE AVAILABLE. PT NOTIFIED. PT'S DAUGHTER WILL BE NOTIFIED.
[2020-03-10] MEDS: ALLOPURINOL 100 MG TABLET PO SCH (11:21)
[2020-03-10] MEDS: HYDROCORTISONE SOD SUCCINATE 100 MG/2 ML VIAL IV SCH ×2 (11:21→18:44)
[2020-03-10 13:07] LABS: *SPE A/G RATIO 0.9 (0.7-1.7); *SPE ALPHA-1-GLOBULIN 0.3 g/dL (0.0-0.4); *SPE BETA GLOBULIN 0.9 g/dL (0.7-1.3); *SPE GLOBULIN, TOTAL 3.3 g/dL (2.2-3.9); *SPE M-SPIKE Not Observed g/dL (Not Observed); *SPEGAMMA GLOBULIN 1.1 g/dL (0.4-1.8)
[2020-03-10] MEDS: SOD FERRIC GLUC 125 MG in IV NS 0.9% 100 ML IV SCH (14:26)
[2020-03-10] MEDS: ENOXAPARIN SODIUM 40 MG/0.4 ML DISP.SYRIN SQ SCH (15:15)
--- NOTE | 2020-03-10 19:30 | NUR ---
END OF SHIFT NOTE: PT HAD AN UNEVENTFUL SHIFT. PT WAS ALERT, OX3 THE ENTIRE DAY, NO DEFICITS NOTED. HR STATED BETWEEN 30'S - 50'S, MD'S AWARE. LEVOPHED GTT TITRATED DOWN TO 0.02 MCG/KG/MIN. PT WAS MADE A DNR/DNI BY PT REQUEST. PT CHECKED ON HOURLY AND PRN BY NURSING STAFF.
[2020-03-10] MEDS: ALPRAZOLAM 1 MG TABLET PO PRN (22:30)
[2020-03-10] MEDS: SIMVASTATIN 20 MG TABLET PO SCH (22:30)
[2020-03-11] VITALS (24 sets, daily range): BP systolic 104–143; BP diastolic 50–102
[2020-03-11] MEDS: HYDROCORTISONE SOD SUCCINATE 100 MG/2 ML VIAL IV SCH ×3 (02:02→18:02)
[2020-03-11 04:42] LABS: BASOPHILS % (AUTO) 0.3 % (0.0-2.0); HEMATOCRIT 33 % (39-51); HEMOGLOBIN 10.4 g/dL (13.5-17.5); LYMPHOCYTES # (AUTO) 0.4 /CMM (0.8-4.8); LYMPHOCYTES % (AUTO) 6.7 % (20.0-44.0); MEAN CORPUSCULAR HGB CONC 32 g/dl (31.0-36.0); MEAN CORPUSCULAR VOLUME 87 fL (80-96); MONOCYTES # (AUTO) 0.4 /CMM (0.1-1.30); NEUTROPHILS # (AUTO) 5.7 /CMM (1.8-8.9); PLATELET COUNT (AUTO) 237 /CMM (150-450); RED BLOOD CELL COUNT(AUTO) 3.76 MIL/uL (4.5-6.0); WHITE BLOOD COUNT (AUTO) 6.6 K/uL (4.3-11.0)
[2020-03-11 04:56] LABS: CALCIUM, SERUM 9.8 mg/dL (8.5-10.1); CARBON DIOXIDE 35 mmol/L (21-32); CHLORIDE 101 mmol/L (98-107); CREATININE 0.9 mg/dL (0.6-1.3); GLUCOSE 145 mg/dL (74-106); MAGNESIUM 2.2 mg/dL (1.8-2.4); PHOSPHORUS 3.2 mg/dL (2.5-4.9); SODIUM SERUM 139 mmol/L (136-145); UREA NITROGEN, BLOOD 17 mg/dL (7-18)
--- NOTE | 2020-03-11 06:37 | NUR ---
CHAPLAINCY NOTE PT REMAINED STABLE DURING SHIFT. NO ACUTE DISTRESS NOTED. ALL NEEDS ATTENDED TO PROMPTLY. LEVOPHED DRIP OFF SINCE MIDNIGHT WITH BP WNL. ALL SAFETY MEASURES IN PLACE. CALL LIGHT WITHIN REACH. WILL ENDORSE TO NEXT SHIFT FOR CONTINUITY OF CARE.
--- NOTE | 2020-03-11 07:30 | NUR ---
RN OPENING NOTE: RECEIVED PATIENT IN BED THIS MORNING. PATIENT IS ALERT AND ORIENTED X3, RESPONDS APPROPRIATELY. ON O2 VIA 3 L/MIN, SATING WELL, NO SIGNS OF ACUTE RESPIRATORY DISTRESS NOTED. AFLUTTER ON BEDSIDE MONITOR WITH EPISODES OF MATEO. NO SIGNS OF ACUTE DISTRESS NOTED. #18 L HAND, #18 R HAND, YOUSIF PICC LINE, C/D/I, FLUSHING WELL, NO SIGNS OF COMPLICATIONS NOTED. SAFETY MEASURES IMPLEMENTED, BED IN LOWEST POSITION, LOCKED, SIDE RAILS UP X2, CALL LIGHT WITHIN REACH. WILL CONTINUE TO MONITOR PATIENT FOR CHANGES.
[2020-03-11] MEDS: POTASSIUM CHLORIDE 10 MEQ TABLET.SA PO SCH ×2 (08:06→18:02)
[2020-03-11] MEDS: VENLAFAXINE XR 37.5 MG CAP.SR.24H PO SCH (08:06)
[2020-03-11] MEDS: FINASTERIDE (5 MG) 5 MG TABLET PO SCH (08:06)
[2020-03-11] MEDS: DONEPEZIL 5 MG TABLET PO SCH (08:07)
[2020-03-11] MEDS: LOSARTAN POTASSIUM 50 MG TABLET PO SCH (08:07)
[2020-03-11] MEDS: ALLOPURINOL 100 MG TABLET PO SCH (08:08)
[2020-03-11] MEDS: PANTOPRAZOLE 40 MG TABLET.DR PO SCH (08:08)
[2020-03-11] MEDS: TERAZOSIN HCL 5 MG CAPSULE PO SCH ×2 (08:08→18:02)
[2020-03-11] MEDS: LEVOTHYROXINE SODIUM 50 MCG TABLET PO SCH (08:08)
--- NOTE | 2020-03-11 11:00 | NUR ---
PATIENT GOT TRANSFERRED TO [facility] AT 1040. REPORT GIVEN TO JIAN. NO SIGNS OF ACUTE DISTRESS AT TIME OF TRANSFER.
--- NOTE | 2020-03-11 11:00 | NUR ---
GUM PULLER NOTES RECEIVED PATIENT FROM [facility] ICU NURSE FOR CONTINUATION OF CARE. ORIENTED PATIENT TO ROOM, CALL LIGHT AND UNIT. ON TELE MONITORING A-FLUTTER: 58-69. ALERT AND ORIENTED X4. RESTING COMFORTABLY IN BED AT THIS TIME. DENIES ANY C/O PAIN NOR DISCOMFORT.
--- NOTE | 2020-03-11 11:30 | NUR ---
HUMAN CAPITAL MANAGER NOTES DVT PUMP ON.
--- NOTE | 2020-03-11 13:51 | NUR ---
NEWSPAPER DISTRIBUTOR SUPERVISOR NOTES PATIENT OFF UNIT, LEFT FOR MRI.
[2020-03-11] MEDS ORDERED: ALPRAZOLAM 1 MG TABLET PO PRN (14:30)
--- NOTE | 2020-03-11 15:10 | NUR ---
REEXAMINER NOTES PATIENT STILL OFF UNIT, IN MRI.
--- NOTE | 2020-03-11 15:28 | NUR ---
PRODUCT PICKER NOTES PATIENT RETURNED TO UNIT. REMAINS STABLE AT THIS TIME.
[2020-03-11] MEDS: SOD FERRIC GLUC 125 MG in IV NS 0.9% 100 ML IV SCH (15:30)
[2020-03-11] MEDS ORDERED: GADOTERIDOL 279.3 MG/ML VIAL IV ONE (16:26)
--- NOTE | 2020-03-11 18:54 | NUR ---
BASE DRAW OPERATOR NOTES PATIENT RESTING COMFORTABLY IN BED. ALERT AND ORIENTED X4. HOB ELEVATED. TITRATED O2 DURING THE SHIFT AND CURRENTLY ON ROOM AIR WITH SPO2 OF 95%. DENIES ANY C/O PAIN NOR DISCOMFORT AT THIS TIME. RIGHT UPPER ARM PICC LINE, LEFT HAND # 18 AND RIGHT HAND #18 SL INTACT AND PATENT. ABLE TO VERBALIZE NEEDS. CALL LIGHT WITHIN REACH. IN NO APPARENT DISTRESS.
--- NOTE | 2020-03-11 20:09 | NUR ---
NUT TAPPER OPENING NOTES RECEIVED PATIENT IN BED, AWAKE, CONSCIOUS, COOPERATIVE, ELEVATED HEAD OF BED, 02 AT 3LPM VIA NASAL CANNULA, UNLABORED BREATHING, NO SIGNS OF RESPIRATORY DISTRESS, LEFT HAND #22, RIGHT HAND #18, SIDE RAILS UP.
[2020-03-11] MEDS: SIMVASTATIN 20 MG TABLET PO SCH (21:45)
[2020-03-11] MEDS: ENOXAPARIN SODIUM 40 MG/0.4 ML DISP.SYRIN SQ SCH (21:47)
[2020-03-12] VITALS: BP 104/56
[2020-03-12] MEDS: HYDROCORTISONE SOD SUCCINATE 100 MG/2 ML VIAL IV SCH ×3 (02:21→17:52)
[2020-03-12] MEDS ORDERED: ALPRAZOLAM 0.25 MG TABLET PO ONE (02:30)
[2020-03-12 04:00] VITALS: BP 108/68
--- NOTE | 2020-03-12 06:49 | NUR ---
GLASS MOLD REPAIRER CLOSING NOTES ENDORSED PATIENT IN BED, AWAKE, CONSCIOUS, COOPERATIVE, ELEVATED HEAD OF BED, 02 AT 3LPM VIA NASAL CANNULA, UNLABORED BREATHING, NO SIGNS OF RESPIRATORY DISTRESS, LEFT HAND #22, RIGHT HAND #18, NO REDNESS OR INFILTRATION NOTED ON BOTH SITES, SIDE RAILS UP FOR SAFETY, DUE MEDS GIVEN.
--- NOTE | 2020-03-12 07:10 | NUR ---
LADLE CLEANER NOTES ASSISTED PATIENT TO THE BATHROOM. OBSERVED PATIENT ABLE TO GET OUT OF BED BY HIMSELF, AMBULATORY WITH UNSTEADY GAIT BUT ABLE TO STABILIZE SELF AFTER WITH THE USE OF WALKER.
--- NOTE | 2020-03-12 08:00 | NUR ---
SPECTROGRAPH OPERATOR NOTES PATIENT SAT UP IN CHAIR FOR BREAKFAST ON ROOM AIR WITH SPO2 OF 94%.
[2020-03-12 08:08] LABS: BASOPHILS % (AUTO) 0.2 % (0.0-2.0); HEMATOCRIT 34 % (39-51); HEMOGLOBIN 10.6 g/dL (13.5-17.5); LYMPHOCYTES # (AUTO) 0.5 /CMM (0.8-4.8); LYMPHOCYTES % (AUTO) 5.3 % (20.0-44.0); MEAN CORPUSCULAR HGB CONC 32 g/dl (31.0-36.0); MEAN CORPUSCULAR VOLUME 87 fL (80-96); MONOCYTES # (AUTO) 0.6 /CMM (0.1-1.30); MONOCYTES % (AUTO) 6.8 % (2.0-12.0); NEUTROPHILS # (AUTO) 8.3 /CMM (1.8-8.9); NEUTROPHILS % (AUTO) 87.7 % (43.0-81.0); PLATELET COUNT (AUTO) 252 /CMM (150-450); RED BLOOD CELL COUNT(AUTO) 3.84 MIL/uL (4.5-6.0); WHITE BLOOD COUNT (AUTO) 9.4 K/uL (4.3-11.0)
[2020-03-12] MEDS: PANTOPRAZOLE 40 MG TABLET.DR PO SCH (08:25)
[2020-03-12] MEDS: LEVOTHYROXINE SODIUM 50 MCG TABLET PO SCH (08:25)
[2020-03-12 09:17] LABS: CALCIUM, SERUM 10.4 mg/dL (8.5-10.1); CREATININE 0.8 mg/dL (0.6-1.3); MAGNESIUM 2.3 mg/dL (1.8-2.4); PHOSPHORUS 2.8 mg/dL (2.5-4.9); POTASSIUM 4.2 mmol/L (3.5-5.1)
[2020-03-12] MEDS: ALLOPURINOL 100 MG TABLET PO SCH (09:23)
[2020-03-12] MEDS: POTASSIUM CHLORIDE 10 MEQ TABLET.SA PO SCH ×2 (09:23→17:52)
[2020-03-12] MEDS: VENLAFAXINE XR 37.5 MG CAP.SR.24H PO SCH (09:23)
[2020-03-12] MEDS: FINASTERIDE (5 MG) 5 MG TABLET PO SCH (09:23)
[2020-03-12] MEDS: LOSARTAN POTASSIUM 50 MG TABLET PO SCH (09:23)
[2020-03-12] MEDS: TERAZOSIN HCL 5 MG CAPSULE PO SCH ×2 (09:24→17:52)
[2020-03-12] MEDS: DONEPEZIL 5 MG TABLET PO SCH (09:24)
[2020-03-12 11:28] VITALS: BP 124/78
[2020-03-12] MEDS ORDERED: ALPRAZOLAM 1 MG TABLET PO PRN (11:30)
[2020-03-12] MEDS: SOD FERRIC GLUC 125 MG in IV NS 0.9% 100 ML IV SCH (14:28)
[2020-03-12] MEDS ORDERED: ENOX80DI SQ (18:18)
[2020-03-12] MEDS ORDERED: WARF7.5T23 PO (18:18)
--- NOTE | 2020-03-12 19:46 | NUR ---
RIGHT WRIST PERIPHERAL IV X2 REMOVED TIP IS INTACT, NO BLEEDING NOTED. AND LEFT WRIST PERIPHERAL IV REMOVED AND TIP IS INTACT, NO BLEEDING NOTED. CALL LIGHT WITHIN REACH. BED ALARM ON. BED IN LOWEST AND LOCKED POSITION. PATIENT IN BED AWAKE A/O X4. NO SOB NOTED. NO COMPLAIN OF PAIN. HOB AT 30 DEGREES. ALL PATIENT'S BELONGINGS AND HOME MEDS ARE ALL IN THE BAGS READY FOR D/C PATIENT AWARE. WITH LEFT UPPER ARM PICC LINE TRIPLE LUMEN, FLUSHED WITH NS 10CC, DRESSING IS INTACT. WITH O2 AT 2L/MIN NC.
--- NOTE | 2020-03-12 19:53 | NUR ---
MS RN NOTES PATIENT RESTING COMFORTABLY IN BED. ALERT AND ORIENTED X4. HOB ELEVATED. NO S/S OF RESPIRATORY DISTRESS. DENIES ANY C/O PAIN NOR DISCOMFORT AT THIS TIME. RIGHT UPPER ARM PICC LINE INTACT AND PATENT. PATIENT FOR DISCHARGE. DISCHARGE INSTRUCTIONS AND PACKET GIVEN TO ONCOMING SHIFT. CODY DAUGHTER AWARE. PATIENT ABLE TO VERBALIZE NEEDS. CALL LIGHT WITHIN REACH. IN NO APPARENT DISTRESS.
[2020-03-12 20:00] VITALS: BP 134/67
--- NOTE | 2020-03-12 20:05 | NUR ---
D/C PACKET PREPARED AND PRINTED BY BRAXTON SAHU,PATIENT SIGNED AND ATTACHED TO THE CHART.
[2020-03-12 20:17] VITALS: BP 134/67
--- NOTE | 2020-03-12 20:22 | NUR ---
REPORTS GIVEN TO LUZ MARIA GONZALES.
[2020-03-12] MEDS: SIMVASTATIN 20 MG TABLET PO SCH (20:37)
[2020-03-12] MEDS: ENOXAPARIN SODIUM 40 MG/0.4 ML DISP.SYRIN SQ SCH (20:38)
== END 2020-03-12 20:50 | DRG 69 ==
LOC: ER 09:42 → TELE 13:43 → ICU 03-09 16:09 → TELE 03-11 10:44 → MED 03-12 08:45
PROVIDERS: ADMIT Student in an Organized Health Care Education/Training Program; ATTEND Student in an Organized Health Care Education/Training Program
PROC: 02HV33Z Insertion of Infusion Device into Superior Vena Cava, Percutaneous Approach (ICD-10-PCS; principal; 2020-03-09)
PROC: B548ZZA Ultrasonography of Superior Vena Cava, Guidance (ICD-10-PCS; 2020-03-09)
DX: G45.9 Transient cerebral ischemic attack, unspecified (principal); C81.90 Hodgkin lymphoma, unspecified, unspecified site; E27.40 Unspecified adrenocortical insufficiency; I48.92 Unspecified atrial flutter; J98.11 Atelectasis; J90 Pleural effusion, not elsewhere classified; R57.9 Shock, unspecified; E87.6 Hypokalemia; I11.0 Hypertensive heart disease with heart failure; I50.9 Heart failure, unspecified; K21.9 Gastro-esophageal reflux disease without esophagitis; I25.10 Atherosclerotic heart disease of native coronary artery without angina pectoris; Z95.2 Presence of prosthetic heart valve; Z96.651 Presence of right artificial knee joint; Z82.3 Family history of stroke; Z66 Do not resuscitate; E78.5 Hyperlipidemia, unspecified; E78.00 Pure hypercholesterolemia, unspecified; D63.8 Anemia in other chronic diseases classified elsewhere; Z87.442 Personal history of urinary calculi; Z95.1 Presence of aortocoronary bypass graft; G47.33 Obstructive sleep apnea (adult) (pediatric); Z98.890 Other specified postprocedural states; Z79.82 Long term (current) use of aspirin; Z79.899 Other long term (current) drug therapy; N40.0 Benign prostatic hyperplasia without lower urinary tract symptoms; Z79.01 Long term (current) use of anticoagulants; Z85.118 Personal history of other malignant neoplasm of bronchus and lung; K44.9 Diaphragmatic hernia without obstruction or gangrene; I70.0 Atherosclerosis of aorta; N20.0 Calculus of kidney; E03.9 Hypothyroidism, unspecified; I05.0 Rheumatic mitral stenosis; D50.9 Iron deficiency anemia, unspecified; M19.90 Unspecified osteoarthritis, unspecified site; K76.9 Liver disease, unspecified; K80.20 Calculus of gallbladder without cholecystitis without obstruction; M48.02 Spinal stenosis, cervical region; M54.12 Radiculopathy, cervical region; R91.1 Solitary pulmonary nodule
CPT/HCPCS: 36415; 36569; 70450-TC; 70553-TC; 71045-TC; 71270-TC; 72125-TC; 72128-TC; 74178; 74183-TC; 80048-TC; 80061-TC; 80076-TC; 82378; 82533; 82728-TC; 82784; 83540-TC; 83735-TC; 84100-TC; 84153-TC; 84154-TC; 84155; 84165; 84443-TC; 84484-TC; 85025-TC; 86334; 87081-TC; 92611-TC; 93307-TC; 97110-TC; 97116-TC; 97530-TC; 97535-TC; A9579; C1751; G0378; J1650; J1720; J2270; J2916; J7030; J7050; Q9967